=== PATIENT | male | born 1965 | race Caucasian/White ===

== ENCOUNTER 2025-03-03 13:23 | Emergency (ER) | payer OTHER ==
[2025-03-03] MEDS: SODIUM CHLORIDE 0.9% 500 ML 500 ML IV STA (13:38)
[2025-03-03 13:57] LABS: INR 1.1 (<1.2)
--- NOTE | 2025-03-03 13:57 | ED ---
General Adult HPI - General Chief complaint: Fall Stated complaint: Syncope Time Seen by Provider: 03/03/25 13:30 Source: patient, EMS, RN notes reviewed, old records reviewed Mode of arrival: EMS Limitations: no limitations - History of Present Illness Initial comments: 59-year-old male presents from [place] with syncopal episode after receiving an injection. Patient began to feel ill shortly after injection, passed out striking the left side of his head. He was noted to have bleeding from the left ear. He was transported by paramedics, placed in a c-collar. Patient is complaining of left-sided headache. Denying any chest pain or abdomi nal pain. No focal numbness or weakness. no Coagulation. - Related Data Previous Rx's Medication Instructions Recorded Ofloxacin 0.3% Otic Soln [Floxin 5 drops LEFT EAR BID #5 ml 03/03/25 0.3% Otic Soln] Allergies Allergy/AdvReac Type Severity Reaction Status Date / Time amoxicillin Allergy Rash/Hives Verified 03/03/25 13:34 Review of Systems ROS Statement: Those systems with pertinent positive or pertinent negative responses have been documented in the HPI. ROS Other: All systems not noted in ROS Statement are negative. Past Medical History Additional Past Medical History / Comment(s): ETOH, HIV History of Any Multi-Drug Resistant Organisms: MRSA Past Surgical History: Orthopedic Surgery Additional Past Surgical History / Comment(s): left ankle Past Psychological History: No Psychological Hx Reported Smoking Status: Never smoker Past Alcohol Use History: Abuse Past Drug Use History: Marijuana General Exam Limitations: no limitations General appearance: alert, in no apparent distress Head exam: Present: atraumatic, normocephalic Eye exam: Present: PERRL ENT exam: Present: other (Bleeding from the external auditory canal, the tympanic membrane cannot be visualized secondary to blood in the canal) Neck exam: Present: other (C-collar) Respiratory exam: Present: normal lung sounds bilaterally. Absent: respiratory distress, wheezes Cardiovascular Exam: Present: regular rate, normal rhythm GI/Abdominal exam: Present: soft. Absent: distended, tenderness, guarding Neurological exam: Present: alert, oriented X3, CN II-XII intact. Absent: motor sensory deficit Psychiatric exam: Present: normal affect, normal mood Skin exam: Present: warm, dry, intact Course Vital Signs 03/03/25 03/03/2525 13:27 14:10 14:30 Temperature 97.2 F L Pulse Rate 64 65 60 Respiratory 20 20 16 Rate Blood Pressure 113/41 111/71 102/69 O2 Sat by Pulse 99 96 96 Oximetry 03/03/25 03/03/25 16:27 17:12 Temperature 97.5 F L Pulse Rate 68 61 Respiratory 18 18 Rate Blood Pressure 105/69 101/64 O2 Sat by Pulse 95 96 Oximetry Medical Decision Making - Medical Decision Making Was pt. sent in by a medical professional or institution ([facility], [employer], urgent care, hospital, or senior living...) When possible be specific @ -No Did you speak to anyone other than the patient for history (EMS, parent, family, police, friend...)? What history was obtained from this source @Paramedics Did you review nursing and triage notes (agree or disagree)? Why? @ -I reviewed and agree with nursing and triage notes Were old charts reviewed (outside hosp., previous admission, EMS record, old EKG, old radiological studies, urgent care reports/EKG's, senior living records)? Report findings @ -No old charts were reviewed Differential Syncope: Valvular disease, hypertrophic cardiomyopathy, pulmonary embolism, tamponade, tachycardia, bradycardia, UT, hypovolemia, hemorrhage, dissection, anemia, intracranial hemorrhage, seizure, hypoglycemia, carbon monoxide poisoning, this is not meant to be an all-inclusive list. EKG interpreted by me (3pts min.). @ -Sinus bradycardia rate of 58, VT interval 195, QRS duration 105, QTc [address] segment elevation. X-rays interpreted by me (1pt min.). @ -None done CT interpreted by me (1pt min.). @ -[CT brain negative for intracranial hemorrhage, there is debris within the left external auditory canal consistent with exam. U/S interpreted by me (1pt. min.). @ -None done What testing was considered but not performed or refused? (CT, X-rays, U/S, labs)? Why? @ -None What meds were considered but not given or refused? Why? @ -None Did you discuss the management of the patient with other professionals (professionals i.e. [facility], [employer], lab, RT, psych nurse, social media content manager, air turning machine feeder, teacher, corporate security officer, nurse outreach case manager)? Give summary @ -No Was smoking cessation discussed for >3mins.? @ -No Was critical care preformed (if so, how long)? @ -No Were there social determinants of health that impacted care today? How? (Home lessness, low income, unemployed, alcoholism, drug addiction, transportation, low edu. Level, literacy, decrease access to med. care, half-way, rehab)? @ -No Was there de-escalation of care discussed even if they declined (Discuss DNR or withdrawal of care, Hospice)? DNR status @ -No What co-morbidities impacted this encounter? (DM, HTN, Smoking, COPD, CAD, Cancer, CVA, ARF, Chemo, Hep., AIDS, mental health diagnosis, sleep apnea, morbid obesity)? @ -[HIV Was patient admitted / discharged? Hospital course, mention meds given and route, prescriptions, significant lab abnormalities, going to OR and other pertinent info. @ -59-year-old male presenting for evaluation of syncopal episode after in jection. Patient had head injury and bleeding from the left ear. No deformity, no lacerations noted. I did perform head CT which was negative for intracranial hemorrhage, there was debris within the left external auditory canal which was consistent with exam, this was hematoma and earwax. This was removed with irrigation with sterile saline. The visualized portion of the tympanic membrane was intact there was blood on the anterior inferior margin of the tympanic membrane either retained blood products or small perforation. Hearing is intact. Patient is otherwise well-appearing syncopal episode likely related to vasovagal episode. Patient is in sinus rhythm. Normal laboratory testing. Patient feeling better and eager for discharge. Given ENT follow-up. Undiagnosed new problem with uncertain prognosis? @ -[No Drug Therapy requiring intensive monitoring for toxicity (Heparin, Nitro, Insulin, Cardizem)? @ -No Were any procedures done? @ -No Diagnosis/symptom? @ -[Syncope Acute, or Chronic, or Acute on Chronic? @ -Acute Uncomplicated (without systemic symptoms) or Complicated (systemic symptoms)? @ -[default Side effects of treatment? @ -No Exacerbation, Progression, or Severe Exacerbation? @ -No Poses a threat to life or bodily function? How? (Chest pain, USA, UT, pneumonia, PE, COPD, DKA, ARF, appy, cholecystitis, CVA, Diverticulitis, Homicidal, Suicidal, threat to staff... and all critical care pts) @Low risk at this time - Lab Data Result diagrams: 03/03/25 13:56 03/03/25 13:56 Lab Results 03/03/25 03/03/25 03/03/25 Range/Units 13:39 13:39 13:56 WBC 6.16 (4.50-10.00) 10*3/uL RBC 3.94 L (4.40-5.60) 10*6/uL Hgb 11.7 L (13.0-17.0) g/dL Hct 34.4 L (39.6-50.0) % MCV 87.3 (80.0-97.0) fL MCH 29.7 (27.0-32.0) pg MCHC 34.0 (32.0-37.0) g/dL Plt Count 206 (140-440) 10*3/uL MPV 10.7 (9.5-12.2) fL Immature Gran % (Auto) 0.2 % Neutrophils % 65.5 % Lymphocytes % 20.0 % Monocytes % 8.3 % Eosinophils % 5.5 % Basophils % 0.5 % Immature Gran # 0.01 (0.00-0.04) 10*3/uL Neutrophils # 4.04 (1.80-7.70) 10*3/uL Lymphocytes # 1.23 (0.90-5.00) 10*3/uL Monocytes # 0.51 (0.20-1.00) 10*3/uL Eosinophils # 0.34 (0.04-0.35) 10*3/uL Basophils # 0.03 (0.00-0.10) 10*3/uL PT 12.4 (10.0-12.5) sec INR 1.1 (<1.2) APTT 25.4 (22.0-30.0) sec Sodium (137-145) mmol/L Potassium (3.5-5.1) mmol/L Chloride (98-107) mmol/L Carbon Dioxide (22-30) mmol/L Anion Gap mmol/L BUN (9-20) mg/dL Creatinine (0.66-1.25) mg/dL Est GFR (CKD-EPI)AfAm (>60 ml/min/1.73 sqM) Est GFR (CKD-EPI)NonAf (>60 ml/min/1.73 sqM) Glucose (74-99) mg/dL Calcium (8.4-10.2) mg/dL Magnesium (1.6-2.3) mg/dL Total Bilirubin (0.2-1.3) mg/dL AST (17-59) U/L ALT (4-49) U/L Alkaline Phosphatase (38-126) U/L Troponin I (0.000-0.034) ng/mL Total Protein (6.3-8.2) g/dL Albumin (3.5-5.0) g/dL 03/03/25 03/03/25 Range/Units 13:56 13:56 WBC (4.50-10.00) 10*3/uL RBC (4.40-5.60) 10*6/uL Hgb (13.0-17.0) g/dL Hct (39.6-50.0) % MCV (80.0-97.0) fL MCH (27.0-32.0) pg MCHC (32.0-37.0) g/dL Plt Count (140-440) 10*3/uL MPV (9.5-12.2) fL Immature Gran % (Auto) % Neutrophils % % Lymphocytes % % Monocytes % % Eosinophils % % Basophils % % Immature Gran # (0.00-0.04) 10*3/uL Neutrophils # (1.80-7.70) 10*3/uL Lymphocytes # (0.90-5.00) 10*3/uL Monocytes # (0.20-1.00) 10*3/uL Eosinophils # (0.04-0.35) 10*3/uL Basophils # (0.00-0.10) 10*3/uL PT (10.0-12.5) sec INR (<1.2) APTT (22.0-30.0) sec Sodium 137 (137-145) mmol/L Potassium 3.5 (3.5-5.1) mmol/L Chloride 105 (98-107) mmol/L Carbon Dioxide 23 (22-30) mmol/L Anion Gap 9 mmol/L BUN 16 (9-20) mg/dL Creatinine 0.66 (0.66-1.25) mg/dL Est GFR (CKD-EPI)AfAm >90 (>60 ml/min/1.73 sqM) Est GFR (CKD-EPI)NonAf >90 (>60 ml/min/1.73 sqM) Glucose 112 H (74-99) mg/dL Calcium 8.3 L (8.4-10.2) mg/dL Magnesium 1.5 L (1.6-2.3) mg/dL Total Bilirubin 0.5 (0.2-1.3) mg/dL AST 18 (17-59) U/L ALT 12 (4-49) U/L Alkaline Phosphatase 57 (38-126) U/L Troponin I <0.012 (0.000-0.034) ng/mL Total Protein 6.0 L (6.3-8.2) g/dL Albumin 3.3 L (3.5-5.0) g/dL Disposition Clinical Impression: Syncope, Ruptured tympanic membrane Disposition: HOME SELF-CARE Condition: Fair Instructions (If sedation given, give patient instructions): Ruptured Eardrum (ED), Syncope (ED) Prescriptions: Ofloxacin 0.3% Otic Soln [Floxin 0.3% Otic Soln] 5 drops LEFT EAR BID #5 ml Is patient prescribed a controlled substance at d/c from ED?: No Referrals: Fiona Dowd MD [Primary Care Provider] - 1-2 days Yayo Sinclair MD [STAFF PHYSICIAN] - 1-2 days Jose Alfredo Mcmanus MD [STAFF PHYSICIAN] - 1-2 days Time of Disposition: 14:53
[2025-03-03 13:58] LABS: Partial Thromboplastin Time 25.4 sec (22.0-30.0); Prothrombin Time 12.4 sec (10.0-12.5)
[2025-03-03 14:10] LABS: Basophils # (A) 0.03 10*3/uL (0.00-0.10); Basophils % (A) 0.5 %; Eosinophils # (A) 0.34 10*3/uL (0.04-0.35); Eosinophils % (A) 5.5 %; HCT 34.4 % (39.6-50.0); Lymphocytes # (A) 1.23 10*3/uL (0.90-5.00); MCH 29.7 pg (27.0-32.0); MCV 87.3 fL (80.0-97.0); Mean Platelet Volume 10.7 fL (9.5-12.2); Monocytes # (A) 0.51 10*3/uL (0.20-1.00); Monocytes % (A) 8.3 %; Neutrophils # (A) 4.04 10*3/uL (1.80-7.70); Neutrophils % (A) 65.5 %; Platelet Count 206 10*3/uL (140-440); RBC 3.94 10*6/uL (4.40-5.60); WBC 6.16 10*3/uL (4.50-10.00)
[2025-03-03] MEDS: HYDROmorphone 0.5 MG/0.5 ML SYRINGE IVP STA (14:11)
--- NOTE | 2025-03-03 14:20 | CT ---
EXAMINATION TYPE: CT brain syed wo con DATE OF EXAM: 03/03/2025 COMPARISON: None CLINICAL INDICATION: Male, 59 years old with history of syncope/NAYLOR, bleeding from left ear; PHH, sync ope/NAYLOR, bleeding from left ear TECHNIQUE: CT scan of the head and cervical spine are performed without contrast. CT DLP: 1452.[address] CTDI: mGy Automated exposure control for dose reduction was used. Findings: Head CT: Ventricles, basal cisterns and sulci over convexities are mildly enlarged consistent with mild atroph y. There is no mass effect or shift of midline structures. No abnormal density is seen throughout the brain parenchyma and there is no acute intra or extra-axia l hemorrhage. Posterior fossa including the brainstem, fourth ventricle and cerebellar pontine angles are grossly n ormal. The intraorbital contents appear normal and symmetric. Visualized paranasal sinuses are well aerated. There is abnormal density in left external auditory canal and middle ear cavities as well as portion of the left mastoid air cells. There is no evidence for bone destruction. CT cervical spine: Craniovertebral junction relationships and prevertebral soft tissues are normal. The cervical vertebral segments are normal in height and alignment and there is no fracture subluxati on. There is moderate disc space narrowing and spondylosis at the C3-4, C4-5, C5-6 and C6-7 levels indica ting moderate degenerative disc disease. There is a small droplet of air appears to be in the epidura l posterior to the C4 vertebral segment raising question of recent intervention possibly epidural inj ection. Clinical correlation recommended. There is advanced arthropathy of the facet joints and uncovertebral joints in the mid and lower cervi zachary spine. There is mild bony encroachment of the cervical canal is at the C6-7 level resulting in mi ld cervical stenosis. There is multilevel neural foraminal encroachment as follows; moderate to sever e at C2-3 on the left, moderate at C3-4 bilaterally, moderate at C4-5 bilaterally, and severe at C5-6 on the left and severe at C6-7 on the right. IMPRESSION: 1. Head CT: No acute bleed or mass effect. Inflammatory changes in the left external auditory canal, middle ear cavity and mastoid air cells without bone destruction 2. CT cervical spine: No acute trauma. Advanced degenerative disc disease and osteoarthritis as descr ibed above. [facility], , 03/03/2025 2:17 PM
[2025-03-03 14:23] LABS: HGB 11.7 g/dL (13.0-17.0)
[2025-03-03 14:26] LABS: ALT 12 U/L (4-49); AST 18 U/L (17-59); African American GFR (CKD) >90 (>60 ml/min/1.73 sqM); Albumin 3.3 g/dL (3.5-5.0); Alkaline Phosphatase 57 U/L (38-126); Anion Gap 9 mmol/L; Blood Urea Nitrogen 16 mg/dL (9-20); Calcium 8.3 mg/dL (8.4-10.2); Carbon Dioxide 23 mmol/L (22-30); Chloride 105 mmol/L (98-107); Glucose 112 mg/dL (74-99); Magnesium 1.5 mg/dL (1.6-2.3); Non-African American GFR(CKD) >90 (>60 ml/min/1.73 sqM); Potassium 3.5 mmol/L (3.5-5.1); Sodium 137 mmol/L (137-145); Total Bilirubin 0.5 mg/dL (0.2-1.3)
[2025-03-03] MEDS: ONDANSETRON 4 MG/2 ML VIAL IVP STA (15:19)
[2025-03-03] MEDS: ONDANSETRON 4 MG ODT STARTER PACK 2 TAB BTL PO STA (15:21)
[2025-03-03] MEDS: MECLIZINE 12.5 MG TAB PO STA (16:22)
[2025-03-03 16:29] VITALS: RESP 18
[2025-03-03 17:14] VITALS: BP 101/64; PULSE 61; TEMP 97.5
== END 2025-03-03 17:15 | disposition home or self-care (01) ==
LOC: EC 13:23
DX: R55 Syncope and collapse (principal); H72.92 Unspecified perforation of tympanic membrane, left ear; B20 Human immunodeficiency virus [HIV] disease; Z88.0 Allergy status to penicillin; W19.XXXA Unspecified fall, initial encounter
CPT/HCPCS: 36415; 93005; 80053; 83735; 84484; 85025; 85610; 85730; 72125; 70450; 99285; 96374; 96375; 96361; J2405; S0119; J1171